=== PATIENT | male | born 1935 | race Caucasian/White ===

== ENCOUNTER 2016-08-24 19:38 | Emergency (ER) | payer MEDICARE, OTHER ==
[2016-08-24 19:57] VITALS: TEMP 98.2
[2016-08-24] MEDS ORDERED: PANTOPRAZOLE 40 MG/10 ML VIAL IVP STA (20:53)
--- NOTE | 2016-08-24 20:59 | ED ---
General Adult HPI - General Chief complaint: Recheck/Abnormal Lab/Rx Stated complaint: coughing up blood Time Seen by Provider: 08/24/16 20:37 Source: patient, family, RN notes reviewed, old records reviewed Mode of arrival: wheelchair Limitations: no limitations - History of Present Illness Initial comments: Chief complaint and history of present illness this 81-year-old male who was having dinner with her son. They were eating heart rolls. Patient then started spitting up or coughing up blood. For conversation appears as though he may have caused a scratch or irritation to the back of the throat which is causing the bleeding. Very little coughing. The blood is fresh. Patient does have history of cardiac problemsA. fib with heart stents he is on both Plavix and Coumadin. - Related Data Home Medications Medication Instructions Recorded Confirmed Aspirin EC [Ecotrin Low Dose] 81 mg PO DAILY 11/23/14 08/24/16 Atorvastatin [Lipitor] 20 mg PO HS 11/23/14 08/24/16 Clopidogrel [Plavix] 75 mg PO DAILY 11/23/14 08/24/16 Digoxin [Lanoxin] 125 mcg PO DAILY 11/23/14 08/24/16 Meclizine [Antivert] 12.5 mg PO TID PRN 11/23/14 08/24/16 Pantoprazole Sodium 40 mg PO QAM 11/23/14 08/24/16 Temazepam [Restoril] 15 mg PO HS 11/23/14 08/24/16 Warfarin [Coumadin] 2.5 mg PO SUWE 11/23/14 08/24/16 metFORMIN HCL [Glucophage] 850 mg PO BID 11/23/14 08/24/16 Acetaminophen Tab [Tylenol] 1,000 mg PO BID PRN 12/15/14 08/24/16 Ascorbic Acid [Vitamin C] 500 mg PO HS 12/15/14 08/24/16 Atenolol [Tenormin] 25 mg PO HS 12/15/14 08/24/16 Multivitamin [Men's Multi-Vitamin] 1 tab PO DAILY 12/15/14 08/24/16 [place]-3 Fatty Acids/Fish Oil [Fish 1 cap PO DAILY 12/15/14 08/24/16 Oil 1,000 mg Softgel] Ubidecarenone [Co Q-10] 200 mg PO DAILY 12/15/14 08/24/16 Finasteride [Proscar] 5 mg PO HS 02/03/16 08/24/16 Warfarin [Coumadin] 1.25 mg PO MOTUTHFRSA 02/03/16 08/24/16 Albuterol Inhaler [Ventolin Hfa 2 puff INHALATION RT-Q6H PRN 02/04/16 08/24/16 Inhaler] Cholecalciferol [Vitamin D3] 1,000 unit PO HS 02/04/16 08/24/16 Nitroglycerin Sl Tabs [Nitrostat] 0.4 mg SUBLINGUAL Q5M PRN 02/04/16 08/24/16 Atenolol [Tenormin] 50 mg PO QAM 06/03/16 08/24/16 Doxazosin Mesylate [Cardura] 8 mg PO BID 06/03/16 08/24/16 Magnesium Chloride [Slow-Mag] 64 mg PO BID 06/03/16 08/24/16 Furosemide [Lasix] 40 mg PO DAILY 08/24/16 08/24/16 Omeprazole 20 mg PO BID 08/24/16 08/24/16 Previous Rx's Medication Instructions Recorded Isosorbide Mononitrate ER [Imdur] 30 mg PO BID #0 02/04/16 Allergies Allergy/AdvReac Type Severity Reaction Status Date / Time diphenhydramine HCl Allergy lip Verified 08/24/16 20:22 [From Benadryl] swelling hydromorphone HCl Allergy Unknown Verified 08/24/16 20:22 [From Dilaudid] Review of Systems ROS Statement: Those systems with pertinent positive or pertinent negative responses have been documented in the HPI. Review of systems. He's not complaining of any headache or visual acuity changes he is very hard of hearing. No chest pain or shortness of breath. No complaint of nausea or vomiting. No back pain no neuro deficits. All systems are reviewed. Past medical problems A. fib on Plavix and Coumadin. Coronary artery disease, angina, diabetes, GERD, hyperlipidemia and hypertension. He also has musculoskeletal disorder osteoarthritis, prostate enlarged. History kidney stones. Surgeries include gallbladder, coronary bypass, joint replacement left hip and a CABG and 94. Family history noncontributory. Patient has ALLERGIES to IV diphenhydramine and hydromorphone. ROS Other: All systems not noted in ROS Statement are negative. Past Medical History Past Medical History: Atrial Fibrillation, Coronary Artery Disease (CAD), Chest Pain / Angina, Diabetes Mellitus, GERD/Reflux, Hyperlipidemia, Hypertension, Musculoskeletal Disorder, Osteoarthritis (OA), Prostate Disorder Additional Past Medical History / Comment(s): hx. kidney stones, recent SOB w/ activity, back problems History of Any Multi-Drug Resistant Organisms: None Reported Past Surgical History: Cholecystectomy, Coronary Bypass/CABG, Heart Catheterization With Stent, Joint Replacement Additional Past Surgical History / Comment(s): L hip, CABG in ' Past Anesthesia/Blood Transfusion Reactions: No Reported Reaction Date of Last Stent Placement:: 09/2014 Past Psychological History: No Psychological Hx Reported Smoking Status: Former smoker Past Alcohol Use History: Occasional Past Drug Use History: None Reported - Past Family History Mother History Unknown: Yes Family Medical History: Cancer Father History Unknown: Yes Family Medical History: Congestive Heart Failure (CHF) General Exam - General Exam Comments Initial Comments: General: The patient is awake and alert, spitting up blood not coughing up blood. Vital signs temp 98.2 pulse 64 story rate 18 pulse ox 97% room air blood pressure 127/ 58. Mildly elevated systolic of 127 noted. The patient is having some issues with bleeding from his mouth. He will be following up with his family physician. Eye: Pupils are equal, round and reactive to light, extra-ocular movements are intact ; there is normal conjunctiva bilaterally. No signs of icterus. Ears, nose, mouth and throat: The patient rinsed his mouth well and no apparent bleeding could be seen on the gums hard palate tongue. The blood seems to be coming from the posterior tongue just beyond what can be observed with direct observation. Neck: The neck is supple, Cardiovascular: A regular rate and rhythm history of A. fib. Rate 64. Respiratory: Lungs are clear to auscultation, respirations are non-labored, breath sounds are equal. No wheezes, stridor, rales, or rhonchi. The patient does not appear to be coughing up blood. It appears to be coming from just to the posterior aspect of the tongue which is not able to be viewed directly. Gastrointestinal: No complaint of abdominal pain or nausea. Musculoskeletal: Normal ROM, no tenderness, Neurological: No weakness or complaints of any neuro deficits and none noted. Skin: Skin is warm and dry and no rashes or lesions are noted. No bruising appreciated Limitations: no limitations Course Vital Signs 08/24/16 19:55 Temperature 98.2 F Pulse Rate 64 Respiratory 18 Rate Blood Pressure 127/58 O2 Sat by Pulse 97 Oximetry Medical Decision Making - Medical Decision Making Medical decision-making. The patient's white count 5.6 hemoglobin 10.8 hematocrit of 34. INR is 2.1. Potassium is 4.3, BUN 26 creatinine 1.62 with a GFR 41. Glucose 164. The patient declines chest x-ray. Patient discussed with Dr. Bravo, he recommends vitamin K 5 mg IV piggyback and consultation from ENT. The patient was seen by Dr. Velazquez in emergency room stop the bleeding by 7 eye doctor. If still not bleeding in 30 minutes the patient be discharged. Spent over an hour since the patient's bleeding was controlled. Dr. Velazquez advised the patient to stay off his Coumadin for 1 day. Patient was advised to follow-up with family physician. If he starts bleeding to return emergency room - Lab Data Result diagrams: 08/24/16 21:09 08/24/16 21:09 Lab Results 08/24/16 08/24/16 08/24/16 Range/Units 21:09 21:09 21:09 WBC 5.6 (3.8-10.6) k/uL RBC 3.59 L (4.30-5.90) m/uL Hgb 10.8 L (13.0-17.5) gm/dL Hct 34.5 L (39.0-53.0) % MCV 96.0 (80.0-100.0) fL MCH 30.1 (25.0-35.0) pg MCHC 31.3 (31.0-37.0) g/dL RDW 14.3 (11.5-15.5) % Plt Count 183 (150-450) k/uL Neutrophils % 66 % Lymphocytes % 19 % Monocytes % 7 % Eosinophils % 6 % Basophils % 1 % Neutrophils # 3.7 (1.3-7.7) k/uL Lymphocytes # 1.1 (1.0-4.8) k/uL Monocytes # 0.4 (0-1.0) k/uL Eosinophils # 0.3 (0-0.7) k/uL Basophils # 0.0 (0-0.2) k/uL PT 20.4 H (9.0-12.0) sec INR 2.1 (<1.1) APTT 30.9 H (22.0-30.0) sec Sodium 143 (137-145) mmol/L Potassium 4.3 (3.5-5.1) mmol/L Chloride 105 (98-107) mmol/L Carbon Dioxide 23 (22-30) mmol/L Anion Gap 15 mmol/L BUN 26 H (9-20) mg/dL Creatinine 1.62 H (0.66-1.25) mg/dL Est GFR (MDRD) Af Amer 50 (>60 ml/min/1.73 sqM) Est GFR (MDRD) Non-Af 41 (>60 ml/min/1.73 sqM) Glucose 164 H (74-99) mg/dL Calcium 9.4 (8.4-10.2) mg/dL Total Bilirubin 0.7 (0.2-1.3) mg/dL AST 35 (17-59) U/L ALT 44 (21-72) U/L Alkaline Phosphatase 85 (38-126) U/L Total Protein 7.7 (6.3-8.2) g/dL Albumin 4.5 (3.5-5.0) g/dL Disposition Clinical Impression: Laceration of tongue with complication, Anticoagulated on Coumadin Disposition: HOME SELF-CARE Condition: Stable Instructions: Laceration (ED) Additional Instructions: Rest with head elevated Sleepy in a lazy boy type chair with a 45 head of bed elevation is advised No crunchy foods for 3 weeks No heavy lifting or bending Patient is to follow up with me i.e. Dr. Ledesma in the next 1-2 weeks for reevaluation of this right base of tongue laceration and hemorrhage. Referrals: Sebastian Padilla MD [Primary Care Provider] - 1-2 days Time of Disposition: 23:52
[2016-08-24 21:17] LABS: Basophils % (A) 1 %; CH 31.3; CHCM 32.8; Eosinophils # (A) 0.3 k/uL (0-0.7); Eosinophils % (A) 6 %; HCT 34.5 % (39.0-53.0); HDW 2.82; HGB 10.8 gm/dL (13.0-17.5); Luc % (Auto) 2; Lymphocytes # (A) 1.1 k/uL (1.0-4.8); Lymphocytes % (A) 19 %; MCH 30.1 pg (25.0-35.0); MCHC 31.3 g/dL (31.0-37.0); Mean Platelet Volume 7.8; Monocytes # (A) 0.4 k/uL (0-1.0); Monocytes % (A) 7 %; Neutrophils # (A) 3.7 k/uL (1.3-7.7); Neutrophils % (A) 66 %; RBC 3.59 m/uL (4.30-5.90); RDW 14.3 % (11.5-15.5); WBC 5.6 k/uL (3.8-10.6); WBC (Perox) 6.14
[2016-08-24 21:25] LABS: INR 2.1 (<1.1); Prothrombin Time 20.4 sec (9.0-12.0)
[2016-08-24 21:26] LABS: Partial Thromboplastin Time 30.9 sec (22.0-30.0)
[2016-08-24 21:27] LABS: Calcium 9.4 mg/dL (8.4-10.2); Potassium 4.3 mmol/L (3.5-5.1); Total Bilirubin 0.7 mg/dL (0.2-1.3); Total Protein 7.7 g/dL (6.3-8.2)
[2016-08-24] MEDS ORDERED: PHYTONADIONE 5 MG in SODIUM CHLORIDE 0.9% 50 ML IVPB STA (22:01)
[2016-08-24] MEDS ORDERED: PHYTONADIONE IVPB STA (22:10)
[2016-08-24] MEDS ORDERED: SODIUM CHLORIDE 0.9% IVPB STA (22:10)
[2016-08-24] MEDS ORDERED: OXYMETAZOLINE 0.05% NASL SPRAY 15 ML NASAL STA (22:12)
[2016-08-24] MEDS ORDERED: NALOXONE 0.4 MG/ML 1 ML VIAL IV PRN (22:13)
[2016-08-24] MEDS ORDERED: SODIUM CHLORIDE 0.9% 1,000 ML IV SCH (22:15)
--- NOTE | 2016-08-24 22:36 | XR ---
EXAMINATION TYPE: XR chest 2V DATE OF EXAM: 08/24/2016 10:24 PM COMPARISON: 06/03/2016 HISTORY: Coughing up blood today history of CAD hypertension CABG cardiac standpoint and atrial fibri llation. TECHNIQUE: Frontal and lateral views of the chest are obtained. FINDINGS: There is suggestion of mild chronic interstitial lung changes. Underlying small pulmonary nodules can not be excluded. There is mild pulmonary vascular congestion. There is no focal air space opacity, pleural effusion, or pneumothorax seen. There is mild cardiomega ly and atherosclerotic calcification in the aortic arch and sternotomy changes.. The osseous struct ures are intact. IMPRESSION: 1. No focal pneumonia. 2. Chronic lung changes. Underlying small pulmonary nodules cannot be excluded. 3. No significant interval change. 4. Mild pulmonary vascular congestion.
[2016-08-24] MEDS ORDERED: SILVER NITRATE APPLICATOR 1 EACH STICK..EA. TOPICAL STA (22:45)
[2016-08-24] MEDS ORDERED: BENZOCAINE SPRAY 100 APPLIC/CAN TOPICAL STA ×2 (22:48→22:49)
--- NOTE | 2016-08-24 23:11 | P.GSCN ---
History of Present Illness Consult date: 08/24/16 Reason for Consult: Bleeding from the mouth Requesting physician: Luis Harvey History of present illness: This is a very pleasant 81-year-old white male who around 638 a sandwich that had a crunchy bread crust. Since that time he has been hemorrhaging from his mouth and throat. Spotting of a large amount of blood. Emergency room physician instituted ice water gargles unfortunately did not seem to help. He continues to bleeding from his mouth and throat. He gets a little bit of blood coming out of his nose. He is coughing. He has a tobacco history but it is not significant he quit many years ago. Denies any alcohol consumption. He is on Coumadin and aspirin and Plavix. Review of Systems - Constitutional Denies chronic headaches - EENT Ears, nose, mouth and throat: Denies bleeding gums - Cardiovascular Denies chest pain, Denies claudication - Respiratory Denies congestion - Gastrointestinal Denies abdominal pain Past Medical History Past Medical History: Atrial Fibrillation, Coronary Artery Disease (CAD), Chest Pain / Angina, Diabetes Mellitus, GERD/Reflux, Hyperlipidemia, Hypertension, Musculoskeletal Disorder, Osteoarthritis (OA), Prostate Disorder Additional Past Medical History / Comment(s): hx. kidney stones, recent SOB w/ activity, back problems History of Any Multi-Drug Resistant Organisms: None Reported Past Surgical History: Cholecystectomy, Coronary Bypass/CABG, Heart Catheterization With Stent, Joint Replacement Additional Past Surgical History / Comment(s): L hip, CABG in Past Anesthesia/Blood Transfusion Reactions: No Reported Reaction Date of Last Stent Placement:: 09/2014 Past Psychological History: No Psychological Hx Reported Smoking Status: Former smoker Past Alcohol Use History: Occasional Past Drug Use History: None Reported - Past Family History Mother History Unknown: Yes Family Medical History: Cancer Father History Unknown: Yes Family Medical History: Congestive Heart Failure (CHF) Medications and Allergies Home Medications Medication Instructions Recorded Confirmed Type Aspirin EC [Ecotrin Low Dose] 81 mg PO DAILY 11/23/14 08/24/16 History Atorvastatin [Lipitor] 20 mg PO HS 11/23/14 08/24/16 History Clopidogrel [Plavix] 75 mg PO DAILY 11/23/14 08/24/16 History Digoxin [Lanoxin] 125 mcg PO DAILY 11/23/14 08/24/16 History Meclizine [Antivert] 12.5 mg PO TID PRN 11/23/14 08/24/16 History Pantoprazole Sodium 40 mg PO QAM 11/23/14 08/24/16 History Temazepam [Restoril] 15 mg PO HS 11/23/14 08/24/16 History Warfarin [Coumadin] 2.5 mg PO SUWE 11/23/14 08/24/16 History metFORMIN HCL [Glucophage] 850 mg PO BID 11/23/14 08/24/16 History Acetaminophen Tab [Tylenol] 1,000 mg PO BID PRN 12/15/14 08/24/16 History Ascorbic Acid [Vitamin C] 500 mg PO HS 12/15/14 08/24/16 History Atenolol [Tenormin] 25 mg PO HS 12/15/14 08/24/16 History Multivitamin [Men's Multi-Vitamin] 1 tab PO DAILY 12/15/14 08/24/16 History [place]-3 Fatty Acids/Fish Oil [Fish 1 cap PO DAILY 12/15/14 08/24/16 History Oil 1,000 mg Softgel] Ubidecarenone [Co Q-10] 200 mg PO DAILY 12/15/14 08/24/16 History Finasteride [Proscar] 5 mg PO HS 02/03/16 08/24/16 History Warfarin [Coumadin] 1.25 mg PO MOTUTHFRSA 02/03/16 08/24/16 History Albuterol Inhaler [Ventolin Hfa 2 puff INHALATION RT-Q6H PRN 02/04/16 08/24/16 History Inhaler] Cholecalciferol [Vitamin D3] 1,000 unit PO 02/04/16 08/24/16 History Nitroglycerin Sl Tabs [Nitrostat] 0.4 mg SUBLINGUAL Q5M PRN 02/04/16 08/24/16 History Atenolol [Tenormin] 50 mg PO QAM 06/03/16 08/24/16 History Doxazosin Mesylate [Cardura] 8 mg PO BID 06/03/16 08/24/16 History Magnesium Chloride [Slow-Mag] 64 mg PO BID 06/03/16 08/24/16 History Furosemide [Lasix] 40 mg PO DAILY 08/24/16 08/24/16 History Omeprazole 20 mg PO BID 08/24/16 08/24/16 History Allergies Allergy/AdvReac Type Severity Reaction Status Date / Time diphenhydramine HCl Allergy lip Verified 08/24/16 20:22 [From Benadryl] swelling hydromorphone HCl Allergy Unknown Verified 08/24/16 20:22 [From Dilaudid] Surgical - Exam Osteopathic Statement: *. No significant issues noted on an osteopathic structural exam other than those noted in the History and Physical/Consult. Vital Signs Temp Pulse Resp BP Pulse Ox 98.2 F 64 18 127/58 97 08/24/16 19:55 08/24/16 19:55 08/24/16 19:55 08/24/16 19:55 08/24/16 19:55 - General well developed, well nourished, moderate distress - Eyes PERRL, normal ocular movement, no icteric - ENT Head is normocephalic the face is symmetric there's no abnormal movements is no tenderness to the sinuses are mastoids is no nodules or eruptions or parasites on scalp. Auricles are well-formed canals are clear the tympanic membranes are without bulging or retraction. Nose is patent there is some scant bleeding seen. This is in the anterior part of the nose are minimally noted. Mouth and throat patient has bleeding from the base of the tongue on the right side it is passed the circumvallate papilla. This area had pressure placed and then anesthetized and cauterized with silver nitrate area and this did stop the bleeding from the right base of tongue. Neck shows no tumors or masses. Trachea is in the midline thyroid isn't enlarged. normal pinna, normal nares, normal mucosa - Neck no masses, no bruits - Respiratory normal expansion - Abdomen Abdomen: non tender - Integumentary no rash, no growths - Neurologic normal coordination, normal sensation, no disoriented - Psychiatric oriented to time, oriented to person, oriented to place Results - Labs 08/24/16 21:09 08/24/16 21:09 Abnormal Lab Results - Last 24 Hours (Table) 08/24/16 08/24/16 08/24/16 Range/Units 21:09 21:09 21:09 RBC 3.59 L (4.30-5.90) m/uL Hgb 10.8 L (13.0-17.5) gm/dL Hct 34.5 L (39.0-53.0) % PT 20.4 H (9.0-12.0) sec APTT 30.9 H (22.0-30.0) sec BUN 26 H (9-20) mg/dL Creatinine 1.62 H (0.66-1.25) mg/dL Glucose 164 H (74-99) mg/dL Diabetes panel 08/24/16 Range/Units 21:09 Sodium 143 (137-145) mmol/L Potassium 4.3 (3.5-5.1) mmol/L Chloride 105 (98-107) mmol/L Carbon Dioxide 23 (22-30) mmol/L BUN 26 H (9-20) mg/dL Creatinine 1.62 H (0.66-1.25) mg/dL Glucose 164 H (74-99) mg/dL Calcium 9.4 (8.4-10.2) mg/dL AST 35 (17-59) U/L ALT 44 (21-72) U/L Alkaline Phosphatase 85 (38-126) U/L Total Protein 7.7 (6.3-8.2) g/dL Albumin 4.5 (3.5-5.0) g/dL Calcium panel 08/24/16 Range/Units 21:09 Calcium 9.4 (8.4-10.2) mg/dL Albumin 4.5 (3.5-5.0) g/dL Pituitary panel 08/24/16 Range/Units 21:09 Sodium 143 (137-145) mmol/L Potassium 4.3 (3.5-5.1) mmol/L Chloride 105 (98-107) mmol/L Carbon Dioxide 23 (22-30) mmol/L BUN 26 H (9-20) mg/dL Creatinine 1.62 H (0.66-1.25) mg/dL Glucose 164 H (74-99) mg/dL Calcium 9.4 (8.4-10.2) mg/dL Adrenal panel 08/24/16 Range/Units 21:09 Sodium 143 (137-145) mmol/L Potassium 4.3 (3.5-5.1) mmol/L Chloride 105 (98-107) mmol/L Carbon Dioxide 23 (22-30) mmol/L BUN 26 H (9-20) mg/dL Creatinine 1.62 H (0.66-1.25) mg/dL Glucose 164 H (74-99) mg/dL Calcium 9.4 (8.4-10.2) mg/dL Total Bilirubin 0.7 (0.2-1.3) mg/dL AST 35 (17-59) U/L ALT 44 (21-72) U/L Alkaline Phosphatase 85 (38-126) U/L Total Protein 7.7 (6.3-8.2) g/dL Albumin 4.5 (3.5-5.0) g/dL Assessment and Plan (1) Oral hemorrhage Narrative/Plan: This patient's bleeding is emanating from the base of the tongue on the right past the circumvallate papilla. I anesthetized this area then cauterized with silver nitrate cauterization which stopped the bleeding. We will watch him for a half hour and if no further bleeding is seen sent home with instructions to rest with head elevated. No crunchy food diet for 3 weeks. No heavy lifting or bending. I've given him my card and I do recommend a follow-up in the office in the next 1-2 weeks. Status: Acute (2) Laceration of tongue with complication Status: Acute Time with Patient: Greater than 30
--- NOTE | 2016-08-24 23:14 | P.PCN ---
Date of Procedure: 08/24/16 Preoperative Diagnosis: Oropharyngeal hemorrhage Postoperative Diagnosis: Same Procedure(s) Performed: Naso pharyngeal laryngoscopy, direct flexible fiberoptic Anesthesia: none Surgeon: Forrest Ledesma Estimated Blood Loss (ml): 5 Pathology: none sent Condition: stable Disposition: same day Indications for Procedure: This patient started around 6:30 this evening with a brisk bleed from the oropharynx after eating a sandwich with a rough and hardened crusty roll. Bleeding is persisted in spite of I's water gargles been asked to consult. Operative Findings: Patient has a laceration of the right base of tongue a high and the circumvallate papilla. Brisk bleeding is encountered. Description of Procedure: Patient had a the NF type GP nasopharyngoscope inserted into the patient's right nares. We went into the nasopharynx oropharynx and hypopharynx and did a complete and thorough examination of these areas. Reevaluated the base the tongue vallecula [place] cords piriform sinus post cricoid space etc. bleeding was noted from the right base of tongue behind the circumvallate papilla with a linear laceration noted. Brisk bleeding was encountered.
--- NOTE | 2016-08-24 23:23 | P.OP ---
Date of Procedure: 08/24/16 Preoperative Diagnosis: Hemorrhage right base of tongue Postoperative Diagnosis: Same Procedure(s) Performed: Cauterization of right base of tongue laceration and hemorrhage Anesthesia: local, none Surgeon: Forrest Ledesma Estimated Blood Loss (ml): 5 Pathology: none sent Condition: stable Disposition: same day Indications for Procedure: Patient had a crunchy sandwich rolled the close the laceration of the base of the tongue on the right side. Risk bleeding was encountered and was taken to the emergency room here at [facility]. Ice water gargles retried along with pressure etc. and the bleeding was unable to be controlled. The bleeding was a brisk hemorrhage. He continues from 6:30 until I was called at 10:00 at night. Examination showed a laceration of the base of the tongue posterior to the circumvallate papillae on the right side. Operative Findings: Patient hada laceration of the right base of tongue posterior to the circumvallate papilla with brisk bleeding noted. Description of Procedure: this patient had his to He is to start the following day. He is to rest with his head elevated with no heavy lifting or bending. Is to call me if any problems should occur. Reinspection of the area prior to discharge showed No Bleeding.ngue examined and then grasped with a gauze. I anesthetized this area with Cetacaine spray. After anesthetization I identified a very long linear laceration with a very profuse hemorrhage noted. I placed pressure anteriorly and then cauterized in a posterior direction as a transfer the pressure or posteriorly. With use of silver nitrate I was able to cauterize this linear laceration and the bleeding stopped nicely. I did evaluate this patient and observe him for over half hour no bleeding recurred. Patient is to hold his Coumadin and Plavix for 1 day.
[2016-08-25 00:09] VITALS: BP 128/70; PULSE 70; RESP 16
[2016-08-25] MEDS ORDERED: PANTOPRAZOLE 40 MG/10 ML VIAL IV SCH (09:00)
== END 2016-08-25 00:08 | disposition home or self-care (01) ==
LOC: EC 19:38
DX: S01.512A Laceration without foreign body of oral cavity, initial encounter (principal); Z79.01 Long term (current) use of anticoagulants; Z79.02 Long term (current) use of antithrombotics/antiplatelets; I48.91 Unspecified atrial fibrillation; Z79.82 Long term (current) use of aspirin; Z79.899 Other long term (current) drug therapy; E78.5 Hyperlipidemia, unspecified; Z79.84 Long term (current) use of oral hypoglycemic drugs; I10 Essential (primary) hypertension; E11.9 Type 2 diabetes mellitus without complications; K21.9 Gastro-esophageal reflux disease without esophagitis; N40.0 Benign prostatic hyperplasia without lower urinary tract symptoms; Z88.5 Allergy status to narcotic agent; Z88.8 Allergy status to other drugs, medicaments and biological substances; I25.10 Atherosclerotic heart disease of native coronary artery without angina pectoris; Z95.1 Presence of aortocoronary bypass graft; Z87.891 Personal history of nicotine dependence
CPT/HCPCS: 36415; 80053; 85025; 85610; 85730; 71020; 96374; 99284; J3430; C9113